=== PATIENT | male | born 1975 | race Caucasian/White ===

== ENCOUNTER 2021-12-05 11:26 | Inpatient (IN) | payer OTHER ==
[2021-12-05 12:36] LABS: #Basophils 0.1 thou/uL (0.0-0.2); #Eosinphils 0.1 thou/uL (0.0-0.7); #Lymphocytes 1.3 thou/uL (1.20-3.40); #Monocytes 0.6 thou/uL (0.11-0.59); #Neutrophils 6.2 thou/uL (1.40-6.50); %Basophils 0.6 % (0.0-1.0); %Lymphocytes 15.5 % (21.0-51.0); %Monocytes 7.2 % (0.0-10.0); %Neutrophils 75.7 % (42.0-75.0); Hemoglobin 15.6 g/dL (14.0-18.0); Mean Corpuscular HGB CONC 33.4 g/dL (32.0-36.0); Mean Corpuscular Volume 92.7 fL (78.0-98.0); Mean Platelet Volume 6.8 fL (7.4-10.4); Platelet Count 258 thou/uL (130-400); RBC Distribution Width 11.7 % (11.5-14.5); Red Blood Cell (RBC) Count 5.05 mill/uL (4.70-6.10); White Blood Cell (WBC) Count 8.2 thou/uL (4.8-10.8)
[2021-12-05 12:54] LABS: ALT (SGPT) 22 U/L (8-55); AST (SGOT) 17 U/L (5-34); Albumin 4.5 g/dL (3.5-5.0); Alkaline Phosphatase 59 U/L (40-110); Anion Gap 13 mmol/L (10-20); BUN (Urea Nitrogen) 18 mg/dL (8.9-20.6); Bilirubin, Total 0.7 mg/dL (0.2-1.2); Calc. Creatinine Clearance 0 mL/min (70-130); Calcium 10.3 mg/dL (7.8-10.44); Carbon Dioxide 23 mmol/L (22-29); Chloride 108 mmol/L (98-107); Globulin 2.3 g/dL (2.4-3.5); Glucose 114 mg/dL (70-105); Potassium 4.5 mmol/L (3.5-5.1); Protein, Total 6.8 g/dL (6.0-8.3); Sodium 139 mmol/L (136-145)
[2021-12-05] MEDS ORDERED: Acetaminophen 325 MG TAB PO PRN (17:01)
[2021-12-05] MEDS ORDERED: Acetaminophen 650 MG Suppository PR PRN (17:01)
[2021-12-05] MEDS ORDERED: Ondansetron PF 4 MG/2 ML Vial IVP PRN (17:01)
[2021-12-05] MEDS ORDERED: Ondansetron ODT 4 MG TAB PO PRN (17:01)
[2021-12-05 17:39] VITALS: BMI 29.5
[2021-12-05] MEDS: levETIRAcetam 500 MG/5 ML VIAL SLOW IVP SCH (20:51)
[2021-12-05] MEDS: Rosuvastatin 5 MG TAB PO SCH (20:51)
[2021-12-05] MEDS: Enoxaparin Sodium 40 MG/0.4 ML SYRINGE SC SCH (20:51)
[2021-12-05] MEDS ORDERED: levETIRAcetam in NS 1,000 MG in Premix Bag 1 BAG IVPB SCH (21:00)
[2021-12-05 23:10] LABS: SARS-CoV-2 PCR by NAA Not Detected (NotDetected)
[2021-12-05] MEDS ORDERED: Enoxaparin Sodium 80 MG/0.8 ML SYRINGE SC SCH (23:45)
[2021-12-06 05:37] LABS: #Basophils 0.1 thou/uL (0.0-0.2); #Eosinphils 0.1 thou/uL (0.0-0.7); #Lymphocytes 2.5 thou/uL (1.20-3.40); #Monocytes 0.6 thou/uL (0.11-0.59); %Basophils 0.9 % (0.0-1.0); %Lymphocytes 33.8 % (21.0-51.0); %Monocytes 8.8 % (0.0-10.0); %Neutrophils 54.5 % (42.0-75.0); Hemoglobin 15.2 g/dL (14.0-18.0); Mean Corpuscular HGB CONC 33.6 g/dL (32.0-36.0); Mean Corpuscular Hemoglobin 31.6 pg (27.0-31.0); Mean Corpuscular Volume 93.9 fL (78.0-98.0); Mean Platelet Volume 6.6 fL (7.4-10.4); Platelet Count 238 thou/uL (130-400); RBC Distribution Width 11.7 % (11.5-14.5); Red Blood Cell (RBC) Count 4.81 mill/uL (4.70-6.10); White Blood Cell (WBC) Count 7.3 thou/uL (4.8-10.8)
[2021-12-06 05:59] LABS: Anion Gap 12 mmol/L (10-20); BUN (Urea Nitrogen) 15 mg/dL (8.9-20.6); Calc. Creatinine Clearance 159 mL/min (70-130); Calcium 9.7 mg/dL (7.8-10.44); Carbon Dioxide 23 mmol/L (22-29); Chloride 107 mmol/L (98-107); Glucose 108 mg/dL (70-105); Sodium 138 mmol/L (136-145)
[2021-12-06] MEDS ORDERED: Aspirin 325 MG TAB PO SCH (09:00)
[2021-12-06] MEDS ORDERED: Iopamidol-370 76% 500 ML 1 ML ONE (09:02)
[2021-12-06] MEDS: levETIRAcetam 500 MG/5 ML VIAL SLOW IVP SCH ×2 (09:25→22:03)
[2021-12-06 16:30] LABS: PTT 31.2 sec (22.9-36.1); Prothrombin Time 13.1 sec (12.0-14.7)
[2021-12-06 16:33] LABS: D-Dimer Test 0.51 *mcg/mL (0.27-0.43)
[2021-12-06] MEDS: Rosuvastatin 5 MG TAB PO SCH (21:59)
[2021-12-06] MEDS: Enoxaparin Sodium 40 MG/0.4 ML SYRINGE SC SCH (22:00)
[2021-12-07 05:28] LABS: #Eosinphils 0.1 thou/uL (0.0-0.7); #Lymphocytes 1.6 thou/uL (1.20-3.40); #Monocytes 0.7 thou/uL (0.11-0.59); #Neutrophils 3.9 thou/uL (1.40-6.50); %Basophils 0.5 % (0.0-1.0); %Eosinophils 1.1 % (0.0-10.0); %Lymphocytes 25.6 % (21.0-51.0); %Monocytes 11.5 % (0.0-10.0); %Neutrophils 61.4 % (42.0-75.0); Hemoglobin 15.1 g/dL (14.0-18.0); Mean Corpuscular HGB CONC 33.1 g/dL (32.0-36.0); Mean Corpuscular Hemoglobin 30.8 pg (27.0-31.0); Mean Corpuscular Volume 92.9 fL (78.0-98.0); Mean Platelet Volume 6.8 fL (7.4-10.4); Platelet Count 226 thou/uL (130-400); RBC Distribution Width 11.6 % (11.5-14.5); Red Blood Cell (RBC) Count 4.91 mill/uL (4.70-6.10); White Blood Cell (WBC) Count 6.4 thou/uL (4.8-10.8)
[2021-12-07 05:51] LABS: Anion Gap 13 mmol/L (10-20); BUN (Urea Nitrogen) 12 mg/dL (8.9-20.6); Calc. Creatinine Clearance 179 mL/min (70-130); Calcium 9.4 mg/dL (7.8-10.44); Carbon Dioxide 22 mmol/L (22-29); Chloride 104 mmol/L (98-107); Glucose 103 mg/dL (70-105); Potassium 3.6 mmol/L (3.5-5.1); Sodium 135 mmol/L (136-145)
[2021-12-07] MEDS: Aspirin 81 mg Enteric Coated Tablet PO SCH (10:06)
[2021-12-07] MEDS: levETIRAcetam 500 MG/5 ML VIAL SLOW IVP SCH (10:13)
[2021-12-07] MEDS: Apixaban 5 MG TAB PO SCH ×2 (11:19→21:15)
[2021-12-07] MEDS: levETIRAcetam 500 MG TAB PO SCH ×3 (12:49→21:15)
[2021-12-07] MEDS: Rosuvastatin 5 MG TAB PO SCH (21:15)
[2021-12-08 05:32] LABS: Anion Gap 11 mmol/L (10-20); BUN (Urea Nitrogen) 10 mg/dL (8.9-20.6); Calc. Creatinine Clearance 163 mL/min (70-130); Carbon Dioxide 26 mmol/L (22-29); Chloride 107 mmol/L (98-107); Glucose 107 mg/dL (70-105); Sodium 140 mmol/L (136-145)
[2021-12-08 05:40] LABS: Band 2 % (5-11); Eosinophils 1 % (0-10); Hemoglobin 15.5 g/dL (14.0-18.0); Lymphocytes 41 % (21-51); MDiff Complete? YES; Mean Corpuscular HGB CONC 32.7 g/dL (32.0-36.0); Mean Corpuscular Hemoglobin 30.7 pg (27.0-31.0); Mean Corpuscular Volume 93.8 fL (78.0-98.0); Mean Platelet Volume 6.8 fL (7.4-10.4); Monocytes 5 % (0-10); Neutrophil 48 % (42-75); Platelet Count 228 thou/uL (130-400); Platelet Morphology Comment Appears Adequate; RBC Distribution Width 11.6 % (11.5-14.5); RBC Morphology Normal; Reactive Lymphocytes 3 % (0-10); Red Blood Cell (RBC) Count 5.05 mill/uL (4.70-6.10); White Blood Cell (WBC) Count 5.6 thou/uL (4.8-10.8)
[2021-12-08 07:59] VITALS: BP 98/58; TEMP 98
[2021-12-08] MEDS: levETIRAcetam 500 MG TAB PO SCH (08:30)
[2021-12-08] MEDS: Apixaban 5 MG TAB PO SCH (08:30)
[2021-12-08] MEDS: Aspirin 81 mg Enteric Coated Tablet PO SCH (08:30)
[2021-12-08 11:34] LABS: Protein C Activity 117 % (78-152)
[2021-12-08 11:38] LABS: Factor VIII Test 118.3 % ACTIVE (56-157)
[2021-12-08 13:04] LABS: Cardiolipin IgA Ab 4.3 APL-U/mL (<14 Negative); Cardiolipin IgG Ab 1.3 GPL-U/mL (<10 Negative); Cardiolipin IgM Ab 0.9 MPL-U/mL (<10 Negative); EliA APS New Method **** NEW METHOD ****
[2021-12-08 14:41] LABS: HEX PHOS LA Tube 2 41.1 SEC; Hexagonal Phospholipid Neut 3.9 SEC (0-8.0)
== END 2021-12-08 11:28 | disposition home or self-care (01) | DRG 57 ==
LOC: ERS 11:26 → NEURO 15:55 → OBSVTOIN 12-07 11:45
PROVIDERS: ADMIT Internal Medicine; ATTEND Family Medicine
DX: I69.398 Other sequelae of cerebral infarction (principal); I82.431 Acute embolism and thrombosis of right popliteal vein; I69.351 Hemiplegia and hemiparesis following cerebral infarction affecting right dominant side; Q21.1 Atrial septal defect; R56.9 Unspecified convulsions; Z20.822 Contact with and (suspected) exposure to COVID-19; Z79.899 Other long term (current) drug therapy; Z79.82 Long term (current) use of aspirin; I69.322 Dysarthria following cerebral infarction; I69.319 Unspecified symptoms and signs involving cognitive functions following cerebral infarction
CPT/HCPCS: 36415; 70450; 70551; 71275; 72125; 80048; 80053; 83090; 84484; 85025; 85240; 85300; 85303; 85305; 85307; 85379; 85598; 85610; 85730; 86147; 93005; 93306; 93970; 95712; 95819; 95957; 96372; G0378; J1650; Q9967; U0003; U0005